=== PATIENT | male | born 1955 | race Caucasian/White ===

== ENCOUNTER 2020-12-26 15:38 | Emergency (ER) | payer MEDICAID, OTHER ==
[~2020-12-26] VITALS: Ht 180.3 cm; Wt 86.0 kg
[~2020-12-26 15:38] MED LIST: CLON1TAB; QUET25TA
[2020-12-26] MEDS ORDERED: BACITRACIN ZINC OINT UDPKT TOP ONE (16:30)
[2020-12-26] MEDS ORDERED: HYDROCODONE/ACETAMINOPHEN 5/325MG TABLET PO ONE (16:30)
[2020-12-26] MEDS ORDERED: LIDOCAINE HCL/PF 1% 10 MG/ML 5ML VIAL IJ ONE (16:30)
[2020-12-26] MEDS ORDERED: IBUPROFEN 600MG TABLET PO ONE (16:30)
[2020-12-26] MEDS ORDERED: IBUP-2028 MT (17:55)
[2020-12-26 18:30] VITALS: BP 158/71
== END 2020-12-26 18:32 | disposition home or self-care (01) ==
LOC: ER 15:38
DX: S90.111A Contusion of right great toe without damage to nail, initial encounter (principal); S93.501A Unspecified sprain of right great toe, initial encounter; E11.9 Type 2 diabetes mellitus without complications; I10 Essential (primary) hypertension; J44.9 Chronic obstructive pulmonary disease, unspecified; J45.909 Unspecified asthma, uncomplicated; F17.210 Nicotine dependence, cigarettes, uncomplicated; Z71.6 Tobacco abuse counseling; Z91.011 Allergy to milk products; Z91.010 Allergy to peanuts; Z91.018 Allergy to other foods; W22.8XXA Striking against or struck by other objects, initial encounter; Y93.89 Activity, other specified; Y92.018 Other place in single-family (private) house as the place of occurrence of the external cause
CPT/HCPCS: 10060; 73660; 82962; 99283; 99406; A4217; J3490; Z7610

== ENCOUNTER 2021-05-31 06:29 | Emergency (ER) | payer MEDICAID ==
[~2021-05-31] VITALS: Ht 167.6 cm; Wt 78.0 kg
[~2021-05-31 06:29] MED LIST changes: +IBUP-2028 MT
[2021-05-31 07:42] LABS: BASOPHILS % 1.3 % (0.0-2.0); HEMATOCRIT. 38.8 % (42.0-52.0); HEMOGLOBIN. 13.1 g/dL (14.0-18.0); LYMPHOCYTES % 19.3 % (20.0-50.0); MEAN CORPUSCULAR HEMOGLOBIN 30.5 pg (28.0-32.0); MEAN CORPUSCULAR VOLUME 90.7 fL (80.0-94.0); MONOCYTES % 12.6 % (2.0-8.0); NEUTROPHILS % 63.8 % (40.0-76.0); PLATELET 333 x1000/uL (130-400); RED BLOOD CELL COUNT 4.28 mill/uL (4.7-6.1); RED CELL DISTRIBUTION WIDTH 13.8 % (11.6-14.6)
[2021-05-31 07:47] LABS: CHLORIDE 110 mEq/L (98-107)
[2021-05-31 07:52] LABS: ETHANOL BLOOD < 10 mg/dL
[2021-05-31 08:18] VITALS: BP 136/84
== END 2021-05-31 08:18 | disposition home or self-care (01) ==
LOC: ER 06:39
DX: F15.129 Other stimulant abuse with intoxication, unspecified (principal); E11.9 Type 2 diabetes mellitus without complications; I10 Essential (primary) hypertension; J44.9 Chronic obstructive pulmonary disease, unspecified; Z91.011 Allergy to milk products; Z91.010 Allergy to peanuts; Z91.018 Allergy to other foods
CPT/HCPCS: 36415; 80053; 80320; 85025; 99283; G0480